=== PATIENT | male | born 2000 | race Caucasian/White ===

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

== ENCOUNTER 2022-08-23 22:15 | Emergency (ER) | payer BC, SELFPAY ==
[2022-08-23 22:17] VITALS: BP 177/86; PULSE 98; RESP 20; TEMP 36.7; O2SAT 100
[2022-08-23 22:21] VITALS: RESP 24
[2022-08-23 22:34] VITALS: PULSE 104; RESP 19; O2SAT 100
--- NOTE | 2022-08-23 22:34 | ECG_ITS ---
Measurements Intervals [place] Rate: 80 P: 66 SD: 148 QRS: 78 QRSD: 97 T: 44 QT: 359 QTc: 416 Interpretive Statements SINUS RHYTHM WITH SINUS ARRHYTHMIA NO PREVIOUS ECG AVAILABLE FOR COMPARISON Electronically Signed On 08-24-2022 22:12:22 CDT by Nunu Fletcher M.D.
[2022-08-23 22:45] VITALS: PULSE 93; RESP 12; O2SAT 100
[2022-08-23] MEDS: SODIUM CHLORIDE 0.9% IV 1,000 ML 999 ML IV CONT (22:52)
[2022-08-23 22:54] LABS: Basophils Percent Auto 0.5 % (0.2-1.2); Eosinophils Absolute Auto 0.1 K/mm3 (0-0.3); Eosinophils Percent Auto 0.7 % (0-4.4); Hematocrit 43.2 % (42.0-52.0); Hemoglobin 15.3 g/dL (14.0-18.0); Immature Granulocyte Absolute 0.02 K/mm3 (0.00-0.031); Immature Granulocyte Percent A 0.2 % (0-0.5); Lymphocytes Absolute Auto 1.79 K/mm3 (0.9-3.2); Lymphocytes Percent Auto 22.3 % (18.3-44.2); Mean Corpuscular HGB Conc 35.4 g/dl (32-36); Mean Corpuscular Hemoglobin 33.3 pg (26-34); Mean Corpuscular Volume 94.1 fl (80-100); Mean Platelet Volume 9.4 fl (7.4-10.4); Monocytes Absolute Auto 0.5 K/mm3 (0.1-0.6); Monocytes Percent Auto 6.7 % (2.6-8.5); Neutrophils Absolute Auto 5.6 K/mm3 (1.3-6.7); Neutrophils Percent Auto 69.6 % (45.5-73.1); Platelet Count Result 218 k/mm3 (150-375); Red Blood Count 4.59 M/mm3 (4.6-6.20); Red Cell Distribution Width 11.6 % (11.5-14.5)
[2022-08-23 23:00] VITALS: PULSE 82; RESP 12; O2SAT 99
[2022-08-23 23:11] LABS: Albumin Level 4.8 g/dL (3.5-5.1); Alkaline Phosphatase 78 U/L (38-126); Anion Gap 16 mmol/L (8-16); Aspartate Amino Transferase 39 U/L (17-59); Bilirubin,Total 1.3 mg/dL (0.2-1.3); Blood Urea Nitrogen 13 mg/dL (9-20); Calcium 9.2 mg/dL (8.4-10.2); Carbon Dioxide 20 mmol/L (22-30); Chloride 101 mmol/L (98-107); Estimated CRCL calculation 129 ml/min; Estimated Glomerular Filt Rate > 60; Glucose 136 mg/dL (65-110); Magnesium 1.8 mg/dL (1.6-2.3); Potassium 3.2 mmol/L (3.4-5.0); Sodium 137 mmol/L (137-145)
[2022-08-23 23:15] VITALS: PULSE 96; RESP 19; O2SAT 100
[2022-08-23 23:17] LABS: Alanine Aminotransferase 27 U/L (6-50)
--- NOTE | 2022-08-23 23:28 | PC.NURSE ---
Report given to NADIRA Tellez.
[2022-08-23] MEDS: MAGNESIUM SULF 2 GM/WATER 50ML 2 GM/50 ML BAG IVPB (23:33)
[2022-08-23] MEDS: POTASSIUM CHLORIDE 20 MEQ PACKET (FOR LIQUID) 40 MEQ PO (23:34)
--- NOTE | 2022-08-24 00:13 | ED.GENADULT ---
HPI - General Adult General Chief complaint: Allergic Reaction Stated complaint: ?ALLERGIC REACTION Time Seen by Provider: 08/23/22 22:26 History of Present Illness HPI narrative: Patient is a 22-year-old gentleman who presents the emergency department with chief complaint of panic attack/cramping in his hands. The patient states that he was with his family and started feeling anxious even though he had no new stressors and reports that he took a half of a Xanax. Patient states afterwards he started feeling very anxious and noticed that his hands started cramping up he stated he did not feel as though he was breathing fast although his family kept telling him to slow down his breathing. The patient reports that when he arrived to the emergency department his hands would still cramp up on him and feels very nervous. Related Data Allergies Allergy/AdvReac Type Severity Reaction Status Date / Time No Known Allergies Allergy Verified 08/23/22 22:22 Review of Systems Review of Systems: A 10 system review of systems was completed on the patient and is negative except for what is stated in the HPI. Nursing and ancillary documentation was reviewed. Exam Narrative: GENERAL: Well-appearing, well-nourished, and in no acute distress. HEAD: Normocephalic, atraumatic. EYES: PERRLA and EOMI. ENT: Nares clear, no rhinorrhea or epistaxis. Mucous membranes moist. NECK: Supple. CHEST: Clear to auscultation. No respiratory distress. HEART: Regular rate and rhythm. No murmur heard. Normal peripheral pulses. ABDOMEN: Soft, nontender, nondistended, normal active bowel sounds. EXTREMITIES: Normal range of motion. No edema. SKIN: Warm, dry, no rash. NEURO: No focal deficits. Alert and oriented x3. PSYCH: Normal mood and affect. Course Vital Signs Vital signs: Vital Signs Temperature 36.7 C 08/23/22 22:17 Pulse Rate 98 08/23/22 22:17 Respiratory Rate 20 08/23/22 22:17 Blood Pressure 177/86 H 08/23/22 22:17 Pulse Oximetry 100 08/23/22 22:17 Oxygen Delivery Room Air 08/23/22 22:17 Temperature 36.7 C 08/23/22 22:17 Pulse Rate 96 08/23/22 23:15 Respiratory Rate 19 08/23/22 23:15 Blood Pressure 177/86 H 08/23/22 22:17 Pulse Oximetry 100 08/23/22 23:15 Oxygen Delivery Room Air 08/23/22 22:17 Medical Decision Making MDM Narrative Medical decision making narrative: Differential diagnosis includes panic attack, electrolyte abnormality, Patient received IV fluids found to have a potassium of 3.2 and a magnesium of 1.8. Patient received 2 g of magnesium and 40 mill equivalents of potassium p.o. Patient is feeling much better at this time and will be discharged home Vital Signs Vital Signs: Vital Signs Temperature 36.7 C 08/23/22 22:17 Pulse Rate 98 08/23/22 22:17 Respiratory Rate 20 08/23/22 22:17 Blood Pressure 177/86 H 08/23/22 22:17 Pulse Oximetry 100 08/23/22 22:17 Oxygen Delivery Room Air 08/23/22 22:17 Temperature 36.7 C 08/23/22 22:17 Pulse Rate 96 08/23/22 23:15 Respiratory Rate 19 08/23/22 23:15 Blood Pressure 177/86 H 08/23/22 22:17 Pulse Oximetry 100 08/23/22 23:15 Oxygen Delivery Room Air 08/23/22 22:17 Lab Data 08/23/22 22:49 08/23/22 22:49 Labs: Lab Results 08/23/22 08/23/22 08/24/22 Range/Units 22:49 22:49 00:17 WBC 8.0 (4.5-10.0) K/mm3 RBC 4.59 L (4.6-6.20) M/mm3 Hgb 15.3 (14.0-18.0) g/dL Hct 43.2 (42.0-52.0) % MCV 94.1 (80-100) fl MCH 33.3 (26-34) pg MCHC 35.4 (32-36) g/dl RDW 11.6 (11.5-14.5) % Plt Count 218 (150-375) k/mm3 MPV 9.4 (7.4-10.4) fl Immature Gran % (Auto) 0.2 (0-0.5) % Neut % (Auto) 69.6 (45.5-73.1) % Lymph % (Auto) 22.3 (18.3-44.2) % Angelina % (Auto) 6.7 (2.6-8.5) % Eos % (Auto) 0.7 (0-4.4) % Baso % (Auto) 0.5 (0.2-1.2) % Lymph # (Auto) 1.79 (0.9-3.2) K/mm3 Angelina # (Auto) 0.5 (0.1-0.6)
[2022-08-24 00:23] LABS: Appearance Urine Clear (Clear); Bilirubin Urine Negative (Negative); Blood Urine Negative (Negative); Color Urine Yellow (Yellow); Glucose Urine UA Trace mg/dL (Negative); Ketones Urine Trace mg/dL (Negative); Leukocyte Esterase Ur Negative LEU/UL (Negative); Nitrate Urine Negative (Negative); Protein Urine Negative (Negative); Specific Grav Ur 1.017 (1.001-1.035); pH Urine 8.5 (5.0-9.0)
[2022-08-24 00:45] VITALS: BP 140/86; PULSE 78; RESP 14; O2SAT 100
[2022-08-24 00:52] LABS: Add Urine Microscopic? NO
== END 2022-08-24 00:46 | disposition home or self-care (01) ==
PROVIDERS: Emergency Provider Emergency Medicine
DX: F41.0 Panic disorder [episodic paroxysmal anxiety] (principal); E87.6 Hypokalemia; E83.42 Hypomagnesemia
CPT/HCPCS: 36415; 80053; 81003; 83735; 85025; 93005; 96365; 99284; A9270; J3475; J7030

== ENCOUNTER 2023-02-01 19:16 | Emergency (ER) | payer BC, SELFPAY ==
--- NOTE | ~2023-02-01 | XR_ITS ---
EXAMINATION: XR chest 2V Exam Date/Time: 02/01/2023 20:20 CDT HISTORY: SOB, dizzy, tingling body after drinking last night Comparison: 06/23/2019. RESULT: Lines, tubes, and devices: None. Lungs and pleura: Clear. Cardiomediastinal silhouette: Stable. Other: No acute osseous or upper abdominal finding. IMPRESSION: No acute cardiopulmonary process. Reviewed, dictated and finalized at location K.
[2023-02-01 19:19] VITALS: BP 151/98; PULSE 134; RESP 24; TEMP 36.1; O2SAT 98
--- NOTE | 2023-02-01 19:46 | ECG_ITS ---
Measurements Intervals [place] Rate: 76 P: 72 TX: 138 QRS: 80 QRSD: 92 T: 48 QT: 376 QTc: 424 Interpretive Statements SINUS RHYTHM MINIMAL Q WAVES- ANTEROLAT/INF LEADS BORDERLINE ECG COMPARED TO ECG 08/23/2022 23:18:08 NO SIGNIFICANT CHANGES Electronically Signed On 02-02-2023 6:59:02 CDT by Alvino Bernal D.O.
--- NOTE | 2023-02-01 19:47 | ED.GENADULT ---
HPI - General Adult General Chief complaint: Unspecified Stated complaint: Allergic reaction? Time Seen by Provider: 02/01/23 19:26 Source: patient Mode of arrival: ambulatory Limitations: no limitations History of Present Illness HPI narrative: This is a 22 year old male that presents to the ER for possible allergic reaction. Reports he had been drinking yesterday. Today he has been feeling tingling all over his body. Feels like his face is swollen. Everything feels heavy. He feels empty. Reports chest pain and shortness of breath. Reports a similar reaction the last time he drank alcohol and his potassium was low. He felt better after having this replaced. Denies fever, abdominal pain, vomiting, or diarrhea. Related Data Allergies Allergy/AdvReac Type Severity Reaction Status Date / Time No Known Allergies Allergy Verified 02/01/23 19:16 Review of Systems Review of Systems: CONSTITUTIONAL: Denies fever CARDIOVASCULAR: Reports chest pain RESPIRATORY: Denies dyspnea. GASTROINTESTINAL: Denies abdominal pain, nausea, vomiting, or diarrhea. NEUROLOGIC: Denies numbness, or weakness. All systems reviewed & are unremarkable except as noted in HPI and below PMFSH Past Medical History Medical History (Updated 02/01/23 @ 22:01 by Valencia Matias PA-C) History of ADHD Social History Social History (Updated 02/01/23 @ 19:56 by Valencia Matias PA-C) Alcohol intake: current Substance use: current Substance use type: marijuana Exam Narrative: GENERAL: Well-appearing, well-nourished, and in no acute distress. HEAD: Normocephalic, atraumatic. EYES: PERRLA and EOMI. ENT: Nares clear, no rhinorrhea or epistaxis. Mucous membranes moist. Oropharynx without tonsillar hypertrophy exudate or other lesions. CHEST: Clear to auscultation. No respiratory distress. No wheezes rales or rhonchi HEART: Regular rate and rhythm. No murmur heard. Normal peripheral pulses. ABDOMEN: Soft, nontender, nondistended, normal active bowel sounds. EXTREMITIES: Normal range of motion. No edema. Strength equal in bilateral upper and lower extremities (5/5) SKIN: Warm, dry, no rash. NEURO: No focal deficits. Alert and oriented x3. Cranial nerves II through XII grossly intact PSYCH: Anxious Course Course Emergency Course: Patient was updated on workup and agrees with plan of care Vital Signs Vital signs: Vital Signs Temperature 97.0 F L 02/01/23 19:19 Pulse Rate 134 H 02/01/23 19:19 Respiratory Rate 24 H 02/01/23 19:19 Blood Pressure 151/98 H 02/01/23 19:19 Pulse Oximetry 98 02/01/23 19:19 Oxygen Delivery Room Air 02/01/23 19:19 Temperature 97.0 F L 02/01/23 19:19 Pulse Rate 78 02/01/23 22:07 Respiratory Rate 14 02/01/23 22:07 Blood Pressure 139/86 02/01/23 22:07 Pulse Oximetry 100 02/01/23 22:07 Oxygen Delivery Room Air 02/01/23 19:19 Medical Decision Making MDM Narrative Medical decision making narrative: Patient presents to the emergency department for several complaints ongoing today. Reporting feeling unwell after drinking yesterday. Reporting paresthesias, hand cramping, chest pain, and shortness of breath. Patient does appear quite anxious. Tachycardic and hypertensive upon arrival. This normalized after IV fluid administration. CBC and metabolic panel without concerning findings. UA with maybe some mild evidence of dehydration. EKG without concerning changes and baseline troponin is negative. Urine drug screen positive for cannabinoids. Chest x-ray without acute cardiopulmonary abnormality. Patient was updated on work-up. Instructed to follow-up with primary doctor. He was given warnings to return to the ED Vital Signs Vital Signs: Vital Signs Temperature 97.0 F L 02/01/23 19:19 Pulse Rate 134 H 02/01/23 19:19 Respiratory Rate 24 H 02/01/23 19:19 Blood Pressure 151/98 H 02/01/23 19:19 Pulse Oximetry 98 02/01/23 19:19 Oxygen Delivery Room Air
[2023-02-01] MEDS: SODIUM CHLORIDE 0.9% IV 1,000 ML 999 ML IV CONT (20:00)
[2023-02-01 20:03] LABS: Basophils Percent Auto 0.6 % (0.2-1.2); Eosinophils Absolute Auto 0.1 K/mm3 (0-0.3); Eosinophils Percent Auto 0.8 % (0-4.4); Hematocrit 45.7 % (42.0-52.0); Hemoglobin 15.4 g/dL (14.0-18.0); Immature Granulocyte Absolute 0.01 K/mm3 (0.00-0.031); Immature Granulocyte Percent A 0.2 % (0-0.5); Lymphocytes Absolute Auto 1.37 K/mm3 (0.9-3.2); Lymphocytes Percent Auto 21.4 % (18.3-44.2); Mean Corpuscular HGB Conc 33.7 g/dl (32-36); Mean Corpuscular Hemoglobin 32.9 pg (26-34); Mean Corpuscular Volume 97.6 fl (80-100); Mean Platelet Volume 9.9 fl (7.4-10.4); Monocytes Absolute Auto 0.6 K/mm3 (0.1-0.6); Monocytes Percent Auto 9.2 % (2.6-8.5); Neutrophils Absolute Auto 4.4 K/mm3 (1.3-6.7); Neutrophils Percent Auto 67.8 % (45.5-73.1); Platelet Count Result 197 k/mm3 (150-375); Red Blood Count 4.68 M/mm3 (4.6-6.20); Red Cell Distribution Width 11.9 % (11.5-14.5); White Blood Count 6.4 K/mm3 (4.5-10.0)
[2023-02-01 20:13] VITALS: PULSE 87
[2023-02-01 20:14] LABS: Appearance Urine Cloudy (Clear); Bacteria Urine None Seen /hpf; Bilirubin Urine Negative (Negative); Blood Urine Negative (Negative); Color Urine Yellow (Yellow); Glucose Urine UA Negative (Negative); Ketones Urine 1+ mg/dL (Negative); Leukocyte Esterase Ur Negative LEU/UL (Negative); Mucus Urine Present /lpf; Need Manual Microscopic Reviewed; Nitrate Urine Negative (Negative); Protein Urine Trace mg/dL (Negative); RBC Urine 0-2 /hpf (0-2); Specific Grav Ur 1.023 (1.001-1.035); Squamous Epithelial Cell Urine None seen /hpf (Few); WBC Urine 0-5 /hpf; pH Urine 8.5 (5.0-9.0)
[2023-02-01 20:15] LABS: Add Urine Microscopic? YES
[2023-02-01 20:21] LABS: Alanine Aminotransferase 12 U/L (6-50); Albumin Level 5.1 g/dL (3.5-5.1); Alkaline Phosphatase 64 U/L (38-126); Anion Gap 11 mmol/L (8-16); Aspartate Amino Transferase 23 U/L (17-59); Bilirubin,Total 1.4 mg/dL (0.2-1.3); Blood Urea Nitrogen 12 mg/dL (9-20); Calcium 9.6 mg/dL (8.4-10.2); Carbon Dioxide 26 mmol/L (22-30); Chloride 102 mmol/L (98-107); Creatine Kinase 118 U/L (55-170); Estimated Glomerular Filt Rate > 60; Glucose 93 mg/dL (65-110); Lipase 132 U/L (23-300); Magnesium 2.2 mg/dL (1.6-2.3); Potassium 3.5 mmol/L (3.4-5.0); Sodium 139 mmol/L (137-145)
[2023-02-01 20:22] LABS: Amphetamine Screen Urine Negative (Negative); Barbiturate Screen Urine Negative (Negative); Benzodiazepines Screen Urine Negative (Negative); Cannabinoid Screen Urine Positive (Negative); Cocaine Screen Urine Negative (Negative); Methadone Screen Urine Negative (Negative); Opiate Screen Urine Negative (Negative); Phencyclidine Screen Urine Negative (Negative)
[2023-02-01 20:31] LABS: Troponin I < 0.012 ng/mL (0.000-0.034)
[2023-02-01 22:07] VITALS: BP 139/86; PULSE 78; RESP 14; O2SAT 100
== END 2023-02-01 22:31 | disposition home or self-care (01) ==
PROVIDERS: Emergency Provider Physician Assistant
DX: E86.0 Dehydration (principal); R94.31 Abnormal electrocardiogram [ECG] [EKG]
CPT/HCPCS: 36415; 71046; 80053; 80307; 81001; 82550; 83690; 83735; 84484; 85025; 93005; 96360; 99284; J2405; J7030